=== PATIENT | male | born 1980 | race Hispanic/Latino ===

== ENCOUNTER 2016-10-08 03:54 | Emergency (ER) | payer OTHER ==
[2016-10-08 05:24] VITALS: RESP 18; TEMP 98.7
[2016-10-08 05:25] VITALS: BP 140/82; BMI 27.7
[2016-10-08 05:35] VITALS: PULSE 80; O2SAT 99
--- NOTE | 2016-10-08 05:36 | ED PDOC ---
Arrival/HPI - General Chief Complaint: Upper Extremity Problem/Injury Time Seen by Provider: 10/08/16 05:33 Historian: Patient - History of Present Illness Narrative History of Present Illness (Text): 10/08/16 05:35 Adama Real is a 36 year old male who presents to the ED s/p right hand injury pain. Patient states the 4th digit of his right hand was caught between 2 pallets and patient now reports pain to the area. Patient denies any weakness/ numbness/tingling in the extremity, decreased ROM, or any other complaints. Time/Duration: Other (tonight) Symptom Onset: Sudden Symptom Course: Unchanged Activities at Onset: Rest, Light Context: Home Past Medical History - Provider Review Nursing Documentation Reviewed: Yes - Reproductive Currently : No - Psychiatric Hx Substance Use: No Family/Social History - Physician Review Nursing Documentation Reviewed: Yes Family/Social History: No Known Family HX Smoking Status: Light Smoker < 10 Cigarettes Daily Hx Alcohol Use: No Hx Substance Use: No Allergies/Home Meds Allergies/Adverse Reactions: Allergies No Known Allergies Allergy (Verified 10/08/16 05:28) Home Medications: Home Meds Medication Instructions Recorded Confirmed Methadone [Methadose] 90 mg PO DAILY 08/06/16 08/06/16 Review of Systems - Physician Review All systems were reviewed & negative as marked: Yes - Review of Systems Constitutional: Normal. absent: Fevers Eyes: Normal ENT: Normal Respiratory: Normal. absent: SOB, Cough Cardiovascular: Normal. absent: Chest Pain Gastrointestinal: Normal. absent: Abdominal Pain, Diarrhea, Nausea, Vomiting Genitourinary Male: Normal. absent: Dysuria, Frequency, Hematuria, Urinary Output Changes Musculoskeletal: Other (+left hand 4th digit pain) Skin: Normal Neurological: Normal Endocrine: Normal Hemo/Lymphatic: Normal Psychiatric: Normal Physical Exam Vital Signs Reviewed: Yes Vital Signs Temp Pulse Resp BP Pulse Ox 10/08/16 05:35 80 99 10/08/16 05:24 98.7 F 18 140/82 Temperature: Afebrile Blood Pressure: Normal Pulse: Regular Respiratory Rate: Normal Appearance: Positive for: Well-Appearing, Non-Toxic, Comfortable Pain Distress: None Mental Status: Positive for: Alert and Oriented X 3 - Systems Exam Head: Present: Atraumatic, Normocephalic Pupils: Present: PERRL Extroacular Muscles: Present: EOMI Conjunctiva: Present: Normal Upper Extremity: Present: Other (Ecchymosis to tip of left 4th digit). No: Cyanosis, Edema Lower Extremity: Present: Normal Inspection. No: Edema Neurological: Present: GCS=15, CN II-XII Intact, Speech Normal Skin: Present: Warm, Dry, Normal Color. No: Rashes Psychiatric: Present: Alert, Oriented x 3, Normal Insight, Normal Concentration Medical Decision Making ED Course and Treatment: 10/08/16 05:35 Impression: 36 year old male complaining of pain to 4th digit of his right hand tonight. Differential Diagnosis include but are not limited to: fracture vs. contusion Plan: -- XR Right Hand -- Reassess and disposition Progress Notes: Reviewed radiology, XR Right Hand shows no evidence of acute fracture. 10/08/16 05:50 On re-evaluation, the patient feels better and is in no acute distress. I have discussed the results and plan with the patient, who expresses understanding. Patient in agreement with plan to discharged home. Patient is stable for discharge. Patient was instructed to follow up with physician/clinic in 1-2 days or return if symptoms worsen or new concerning symptoms arise. - RAD Interpretation Radiology Orders: 10/08/16 05:34 HAND RIGHT 4TH DIGIT (FINGER) [RAD] Stat - Scribe Statement The provider has reviewed the documentation as recorded by the Jose Burton Provider Attestation: All medical record entries made by the Scribe were at my direction and personally dictated by me. I have reviewed the chart and agree that the record accurately reflects my personal performance of the history, physical exam, medical decision making, and the department course for this patient. I have also personally directed, reviewed, and agree with the discharge instructions and disposition. Disposition/Present on Arrival - Present on Arrival History of DVT/PE: No History of Uncontrolled Diabetes: No Urinary Catheter: No History of Decub. Ulcer: No History Surgical Site Infection Following: None - Disposition Diagnosis: Contusion of fingertip Discharge Instructions (ExitCare): Finger Sprain (ED)
--- NOTE | 2016-10-08 09:33 | RAD ---
PROCEDURE: Right ring finger radiographs. HISTORY: injury r/o fx COMPARISON: None. TECHNIQUE: AP radiograph of the right hand, as well as spot oblique and lateral images of ring finger were obtained. FINDINGS: RIGHT RING FINGER: Normal right ring finger, without acute fracture or focal lesion. Remainder of the right hand (as seen on the AP view) grossly unremarkable. JOINTS: Normal. SOFT TISSUES: Normal. OTHER FINDINGS: None. IMPRESSION: No acute fracture or dislocation.
== END 2016-10-08 06:30 | disposition home or self-care (01) ==
LOC: ED 03:54
DX: S60.041A Contusion of right ring finger without damage to nail, initial encounter (principal); W23.0XXA Caught, crushed, jammed, or pinched between moving objects, initial encounter; Y92.009 Unspecified place in unspecified non-institutional (private) residence as the place of occurrence of the external cause